=== PATIENT | female | born 2000 | race Caucasian/White ===

== ENCOUNTER 2022-02-27 10:38 | Day surgery (SDC) | payer BC, SELFPAY ==
[2022-02-27] MEDS ORDERED: HYDROmorphone 0.5 MG/0.5 ML SYRINGE ONE (13:43)
[2022-02-27] MEDS ORDERED: fentaNYL Citrate/PF 100 MCG/2 ML SYRINGE ONE (13:43)
[2022-02-27] MEDS ORDERED: Propofol 500 MG/50 ML VIAL ONE (13:43)
[2022-02-27] MEDS ORDERED: Bupivacaine 0.25% HCL 30 ML VIAL ONE (13:45)
[2022-02-27] MEDS ORDERED: Lidocaine 1% w/Epinephrine 1:100K 20 ML VIAL ONE (13:45)
[2022-02-27] MEDS ORDERED: cefOXitin 2 GM VIAL ONE (13:57)
[2022-02-27] MEDS ORDERED: Sodium Chloride 0.9% 100 ML ONE (13:57)
[2022-02-27] MEDS ORDERED: Midazolam HCl 2 mg/2 ml Vial ONE (13:59)
[2022-02-27] MEDS ORDERED: Dexamethasone 20 MG/5 ML VIAL ONE (14:04)
[2022-02-27] MEDS ORDERED: Esmolol 100 MG/10 ML VIAL ONE (14:04)
[2022-02-27] MEDS ORDERED: Ondansetron PF 4 MG/2 ML Vial ONE ×2 (14:04→15:14)
[2022-02-27] MEDS ORDERED: PROPOFOL 200 MG/20 ML VIAL ONE (14:04)
[2022-02-27] MEDS ORDERED: Succinylcholine 200 MG/10 ml SYRINGE FS ONE (14:04)
[2022-02-27] MEDS ORDERED: Lidocaine 1% PF 5 ML VIAL ONE (14:04)
[2022-02-27] MEDS ORDERED: Ketorolac Tromethamine 30 MG/ML VIAL ONE (14:04)
[2022-02-27] MEDS ORDERED: Rocuronium Bromide 10 MG/ML (10ML VIAL) ONE (14:04)
[2022-02-27] MEDS ORDERED: Glycopyrrolate 0.2 MG/ML 5 ML SYRINGE ONE (14:04)
[2022-02-27] MEDS ORDERED: Fentanyl 100 MCG/2 ML VIAL ONE (15:25)
[2022-02-27] MEDS ORDERED: HYDROcodone/Acetaminophen 5/325 mg Tablet ONE (16:45)
== END 2022-02-27 17:42 | disposition home or self-care (01) ==
LOC: SDC 10:38
PROVIDERS: ATTEND Surgery
PROC: 0DTJ4ZZ Resection of Appendix, Percutaneous Endoscopic Approach (ICD-10-PCS; principal; 2022-02-27)
DX: K35.80 Unspecified acute appendicitis (principal); Z88.2 Allergy status to sulfonamides; Z91.040 Latex allergy status
CPT/HCPCS: 88304; A4649; C1776; J0694; J1100; J1170; J1885; J2250; J2405; J2704; J3010; J3490; S0020